=== PATIENT | female | born 1945 | race Caucasian/White ===

== ENCOUNTER → 2022-11-19 | Outpatient (CLI) | payer MEDICARE | END | disposition home or self-care (01) | LOC: SHCH 10:26 | PROVIDERS: ATTEND Internal Medicine Cardiovascular Disease | DX: I87.2 Venous insufficiency (chronic) (peripheral) (principal); M71.21 Synovial cyst of popliteal space [Baker], right knee | CPT/HCPCS: 93970 ==

== ENCOUNTER 2024-06-29 06:51 | Day surgery (SDC) | payer MEDICARE ==
--- NOTE | 2024-06-27 10:51 | EKG ---
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
[2024-06-27 10:56] VITALS: BP 118/71; PULSE 61; RESP 16; TEMP 97.6
[2024-06-27 11:12] LABS: CREATININE 1.2 mg/dL (0.5-1.0); POTASSIUM 3.8 mmol/L (3.5-5.1)
[2024-06-27 11:20] LABS: BASOPHILS # (AUTO) 0.05 K/uL (0.00-0.20); BASOPHILS % (AUTO) 0.6 % (0.0-5.0); EOSINOPHILS # (AUTO) 0.24 K/uL (0.00-0.70); EOSINOPHILS % (AUTO) 3.1 % (0.0-8.0); HEMATOCRIT 42.6 % (36-48); IMMATURE GRANULOCYTE ABSOLUTE 0.03 K/uL (0-1); LYMPHOCYTES # (AUTO) 1.8 K/uL (1.0-4.8); LYMPHOCYTES % (AUTO) 22.7 % (21.0-51.0); MEAN CORPUSCULAR HEMOGLOBIN 31.4 pg (27.0-33.0); MEAN CORPUSCULAR HGB CONC 33.1 g/dL (32.0-36.0); MEAN CORPUSCULAR VOLUME 94.9 fL (79-99); MONOCYTES # (AUTO) 0.5 K/uL (0.1-1.0); MONOCYTES % (AUTO) 5.9 % (3.0-13.0); NEUTROPHILS # (AUTO) 5.3 K/uL (1.8-7.7); NEUTROPHILS % (AUTO) 67.3 % (40.0-77.0); PLATELET COUNT (AUTO) 245 K/uL (130-400); RED BLOOD CELL COUNT(AUTO) 4.49 MIL/uL (4.00-5.50); WHITE BLOOD COUNT (AUTO) 7.8 K/uL (4.8-10.8)
[2024-06-27 11:33] LABS: APPEARANCE,URINE CLEAR (CLEAR); BILIRUBIN,URINE NEGATIVE (NEGATIVE); COLOR,URINE COLORLESS (YELLOW); GLUCOSE, URINE (UA) NEGATIVE (NEGATIVE); KETONES,URINE NEGATIVE (NEGATIVE); LEUKOCYTE ESTERASE ,URINE NEGATIVE Leu/uL (NEGATIVE); NITRATE,URINE NEGATIVE (NEGATIVE); OCCULT BLOOD,URINE NEGATIVE (NEGATIVE); PROTEIN,URINE NEGATIVE (NEGATIVE); UROBILINOGEN,URINE 0.2 mg/dL (0.2-1.0)
[2024-06-27 11:51] LABS: INR <= 0.93 (0.85-1.15); PROTHROMBIN TIME 10.1 SEC (9.6-11.6)
[2024-06-27 11:53] LABS: PARTIAL THROMBOPLASTIN TIME 27.8 SEC (26.3-35.5)
[2024-06-27 11:56] LABS: ADD UA MICROSCOPIC NO
[2024-06-27 12:33] LABS: B-TYPE NATRIURETIC PEPTIDE 26 pg/mL (0-100)
--- NOTE | 2024-06-27 12:44 | HMCIMG ---
CHEST 1VW HISTORY: Preop COMPARISON: None FINDINGS: A frontal projection of the chest was obtained. No acute pulmonary infiltrates is seen. The heart is normal in size. Postop changes are seen of the cervical spine. Degenerative changes are seen. Aortic calcifications are seen. IMPRESSION: 1. No acute pulmonary infiltrate is seen.
[2024-06-29] VITALS (11 sets, daily range): BP systolic 104–134; BP diastolic 61–76; PULSE 71–82; RESP 10–18; TEMP 97–97.6
[~2024-06-29] VITALS: Ht 157.5 cm; Wt 76.2 kg
[~2024-06-29 06:51] MED LIST: ACET-3540 PO; ATEN25TA PO; BACL5TAB PO; CLON0.1T PO; CLOP75TA32 PO; COQ10 PO; ERGO500093 PO; GABA-1405 PO; GABA-534 PO; HYDR-4068 PO; LEVO100 PO; LIOT5TAB11 PO; LOSA1TAB54 PO; LUTEIN PO; MVI PO; NITR0.4T50 SL; PSYL575P22 PO; SUCR1TAB PO
[2024-06-29] MEDS: 0.9%NACL 1000ML 1,000 ML IV SCH (07:32)
[2024-06-29] MEDS ORDERED: LIDOCAINE HCL 400MG/20ML VIAL ONE (08:39)
[2024-06-29] MEDS ORDERED: FENTanyl CITRate PF 50 MCG/1 ML 2ML VIAL ONE (08:39)
[2024-06-29] MEDS ORDERED: BIVALIRUDIN 250 MG/VIAL IV ONE (08:39)
[2024-06-29] MEDS ORDERED: NITROGLYCERIN 50MG VIAL ONE (08:40)
[2024-06-29] MEDS ORDERED: HEParin-NS 1,000 UNIT/500 ML 1,000 ML IV ONE (08:40)
[2024-06-29] MEDS ORDERED: IOHEXOL 350 MG/ML 100ML INFUS..BTL IV ONE (08:40)
[2024-06-29] MEDS ORDERED: HEParin 10,000 UNIT/10ML (1,000 UNIT/ML) VIAL ONE (08:40)
[2024-06-29] MEDS ORDERED: MIDAZOLAM HCL 1 MG/ML 2ML VIAL ONE (08:40)
[2024-06-29] MEDS ORDERED: niCARDIpine 25MG INJ IV ONE (08:43)
[2024-06-29] MEDS ORDERED: ATROPINE 1MG SYG IVP ONE (09:01)
[2024-06-29] MEDS ORDERED: Solu-medROL 125MG VIAL ONE (09:19)
--- NOTE | 2024-06-29 09:55 | PRN ---
Left Heart Cath-[facility] PROCEDURE: 1. Right radial artery sheath placement six [place] 2. Selective coronary angiogram. 3. Left heart catheterization. 4. Left ventriculogram. Five. Conscious sedation INDICATIONS: Chest pain Coronary artery disease DESCRIPTION OF PROCEDURE: The patient was brought to the catheterization suite and prepped and draped in s terile fashion. An IV was started, if not already in place and both groins and right radial artery were exposed for arterial access. 2% lidocaine was used for local anesthesia and then a micropuncture kit was used to gain access and once free-flowing blood was seen, modified Seldinger technique was utilized to place a 6 [place] sheath into the right radial artery. Next, preformed tag catheter was then used then used to selectively engage the [place] RCA and multiple hand contrast injections were performed in different views to define the coronary anatomy. This catheter was then attempted to engage the left main artery but was too long and we then went and then with a JL 3.5 catheter which appeared still to be slightly too long but was able to image the left coronary system adequately. Next, a six [place] angled pigtail catheter was used to cross the aortic valve. Pressure measurements were obtained in the left ventriculogram was in the 30 FUENTES position. Next, pullback method was performed. At the end of the case, sheath was pulled and a vascular band was placed for hemostasis of right radial artery arteriotomy site. No complications occurred. FINDINGS: The left main artery bifurcates into the LAD and left circumflex artery in his free of any significant stenosis. The left anterior descending artery in its proximal segment has no stenosis present and gives rise to a high large diagonal branch 1. Which branches distally. Diagonal branch one vessel was free of any significant disease. Ongoing mid and distal LAD is free of any significant stenosis. The left circumflex artery gives rise to a high obtuse marginal branch vessel. This was a nondominant system. OMP and left circumflex system are free of any significant stenosis. The right coronary artery is a large dominant vessel giving rise to the RPDA and RPL. There was no significant stenosis present in the RCA or in the PDA and/or RPL. Ejection fraction of 65% LVEDP is slightly elevated There was no evidence of aortic stenosis or mitral regurgitation NILAM GOMEZ MD Jun 29, 2024 09:55
[2024-06-29] MEDS ORDERED: 0.9%NACL 1000ML 1,000 ML IV SCH (10:00)
[2024-06-29] MEDS ORDERED: DEXTROSE 50%-WATER 50 ML DISP.SYRIN IV PRN (10:00)
[2024-06-29] MEDS ORDERED: GLUCAGON 1MG KIT 1 MG ML IM PRN (10:00)
--- NOTE | 2024-06-29 10:10 | NUR ---
URINARY: VOIDED QS YELLOW COLOR URINE PER BEDPAN WITHOUT DIFFICULTY.
--- NOTE | 2024-06-29 11:36 | NUR ---
vasc band: vasc band removed with no active bleeding present. cleansed with chlor prep followed by applying sterile 2x2 gauze than 2x2 tegaderm with no redness or swelling to surrounding area rt wrist.
== END 2024-06-29 13:49 | disposition home or self-care (01) ==
LOC: DAH 06:51
PROVIDERS: ATTEND Internal Medicine Cardiovascular Disease
DX: I25.118 Atherosclerotic heart disease of native coronary artery with other forms of angina pectoris (principal); R94.39 Abnormal result of other cardiovascular function study; I11.0 Hypertensive heart disease with heart failure; I50.32 Chronic diastolic (congestive) heart failure; I87.1 Compression of vein; M79.7 Fibromyalgia; I87.2 Venous insufficiency (chronic) (peripheral); I89.0 Lymphedema, not elsewhere classified; R09.89 Other specified symptoms and signs involving the circulatory and respiratory systems; E78.49 Other hyperlipidemia; G47.33 Obstructive sleep apnea (adult) (pediatric); E66.9 Obesity, unspecified; E03.9 Hypothyroidism, unspecified; F41.9 Anxiety disorder, unspecified; F32.A Depression, unspecified; G43.909 Migraine, unspecified, not intractable, without status migrainosus; Z90.49 Acquired absence of other specified parts of digestive tract; Z98.41 Cataract extraction status, right eye; Z98.42 Cataract extraction status, left eye; Z88.1 Allergy status to other antibiotic agents; Z88.8 Allergy status to other drugs, medicaments and biological substances; Z87.891 Personal history of nicotine dependence; Z68.30 Body mass index [BMI] 30.0-30.9, adult; Z82.49 Family history of ischemic heart disease and other diseases of the circulatory system; Z83.3 Family history of diabetes mellitus; Z79.899 Other long term (current) drug therapy; Z98.890 Other specified postprocedural states
CPT/HCPCS: 80048; 83880; 85025; 85610; 85730; 81003; 36415; 71045; 93005; 93458; 82948 ×2; C1769 ×2; C1894; A4649; Q9965; J3490 ×3; J7030; J1644 ×2; J2250; Q9967; A4215; A4335; A4222; A6260; A4221; A4663; A4216; A6206; A4606; A4223 ×3; A4554; 96360; 96361; 99156; 99157; J0461; J0583; J2919; J3010